=== PATIENT | female | born 1980 | race Caucasian/White ===

== ENCOUNTER 2019-06-11 10:40 | Emergency (ER) | payer MEDICAID ==
[~2019-06-11] VITALS: Ht 157.5 cm; Wt 56.7 kg
[2019-06-11 10:47] VITALS: BP_SYST 126
--- NOTE | 2019-06-11 12:50 | NUR ---
Patient to ER bed 07 to gown for evaluation. Side rails up.
[2019-06-11] MEDS ORDERED: KETOROLAC TROMETHAMINE 60 MG/2 ML VIAL IM ONE (13:15)
--- NOTE | 2019-06-11 13:28 | NUR ---
ER at bedside examining patient.
--- NOTE | 2019-06-11 13:30 | NUR ---
pt arrives from home w/ c/o of ARIAS unrelived by over the counter meds
--- NOTE | 2019-06-11 13:40 | NUR ---
Pt refused Toradol 60 mg at this time,states pain is not strong, MD notified.
--- NOTE | 2019-06-11 14:00 | NUR ---
Patient transported to radiology via gurney, accompanied by staff.
--- NOTE | 2019-06-11 14:20 | NUR ---
pt returned from CT scan
--- NOTE | 2019-06-11 14:51 | NUR ---
Patient given written and verbal discharge instructions and verbalizes understanding. ER MD discussed with patient the results and treatment provided. Patient in stable condition. ID arm band removed. Rx of Tramadol given. Patient educated on pain management and to follow up with PMD. Pain Scale 3/10. Opportunity for questions provided and answered. Medication side effect fact sheet provided.
[2019-06-11 14:55] VITALS: BP_SYST 126
== END 2019-06-13 14:51 | disposition home or self-care (01) ==
LOC: SED 10:40
DX: R51 Headache (principal); F17.200 Nicotine dependence, unspecified, uncomplicated
CPT/HCPCS: 70450-TC; 96372; 99284; J1885

== ENCOUNTER 2021-08-06 16:55 | Emergency (ER) | payer MEDICAID ==
[~2021-08-06] VITALS: Ht 157.5 cm; Wt 49.9 kg
[2021-08-06 16:55] VITALS: BP_SYST 124
[2021-08-06 18:26] LABS: BASOPHILS # (AUTO) 0.1 K/uL (0.0-0.2); EOSINOPHILS # (AUTO) 0.1 K/uL (0.0-0.4); HEMATOCRIT 39.7 % (36-48); HEMOGLOBIN 13.1 g/dL (12.0-16.0); LYMPHOCYTES # (AUTO) 1.8 K/uL (1.0-5.5); LYMPHOCYTES % (AUTO) 30.6 % (20.5-51.5); MEAN CORPUSCULAR HEMOGLOBIN 28 pg (27-31); MEAN CORPUSCULAR HGB CONC 33 % (32-36); MEAN CORPUSCULAR VOLUME 84 fL (79.0-98.0); MONOCYTES # (AUTO) 0.4 K/uL (0.0-1.0); MONOCYTES % (AUTO) 6.6 % (1.7-9.3); NEUTROPHILS # (AUTO) 3.5 K/uL (1.8-7.7); NEUTROPHILS % (AUTO) 59.8 % (40.0-70.0); PLATELET COUNT (AUTO) 362 K/uL (130-430); RED BLOOD CELL COUNT(AUTO) 4.76 MIL/uL (4.2-6.2); WHITE BLOOD COUNT (AUTO) 5.9 K/uL (4.8-10.8)
[2021-08-06 18:31] LABS: BILIRUBIN,URINE NEGATIVE (NEGATIVE); CLARITY/URINE CLEAR (CLEAR); COLOR,URINE YELLOW (YELLOW); GLUCOSE,URINE NEGATIVE (NEGATIVE); KETONES,URINE NEGATIVE (NEGATIVE); LEUKOCYTE ESTERASE ,URINE TRACE (NEGATIVE); NITRITE, URINE NEGATIVE (NEGATIVE); PROTEIN URINE NEGATIVE (NEGATIVE); UROBILINOGEN,URINE 0.2 (0.2-1.0)
[2021-08-06 18:40] LABS: CALCIUM 9.7 mg/dL (8.4-11.0); CREATININE 0.81 mg/dL (0.55-1.30); POTASSIUM 3.9 mmol/L (3.5-5.1)
[2021-08-06 18:42] LABS: BLOOD, URINE TRACE (NEGATIVE)
[2021-08-06 18:45] LABS: PROTHROMBIN TIME 9.9 SECS (9.5-12.5)
[2021-08-06 18:57] LABS: ALBUMIN 3.9 g/dL (3.4-4.8); FREE T4 (FREE THYROXINE) 0.9 ng/dl (0.8-1.5); THYROID STIMULATING HORMONE 0.65 uIu/mL (0.36-3.74); TOTAL BILIRUBIN 0.1 mg/dL (0.0-1.0)
[2021-08-06 19:09] LABS: BACTERIA,URINE FEW /HPF (None Seen); RBC,URINE 0-3 /HPF (0-3)
[2021-08-06 19:35] VITALS: BP_SYST 122
== END 2021-08-06 19:40 | disposition home or self-care (01) ==
LOC: SED 16:55
DX: R53.83 Other fatigue (principal); R82.71 Bacteriuria
CPT/HCPCS: 36415; 71045; 80053; 81000; 82550; 83605; 83880; 84439; 84443; 84484; 85025; 85610-TC; 85730-TC; 87040; 87086; 93005; 99285